=== PATIENT | female | born 1980 | race Caucasian/White ===

== ENCOUNTER 2017-04-21 09:15 | Inpatient (IN) | payer OTHER ==
[2017-04-21] MEDS ORDERED: OXYTOCIN 30 UNITS/LR 500 ML IV ×4 (10:00→15:30)
[2017-04-21] MEDS ORDERED: LIDOCAINE 1% (MPF) 30 ML INJ INJ (10:00)
[2017-04-21] MEDS ORDERED: MISOPROSTOL 200 MCG TAB PR ×3 (10:00→15:30)
[2017-04-21] MEDS ORDERED: CARBOPROST 250 MCG INJ IM ×3 (10:00→15:30)
[2017-04-21] MEDS: LACTATED RINGER'S 1,000 ML IV ×2 (10:27→12:58)
[2017-04-21 10:32] LABS: ADD MAN DIFF? NO
[2017-04-21 10:35] LABS: BASOPHILS % 0.4 % (0.0-2.0); EOSINOPHILS % 0.2 % (0.0-7.0); HEMATOCRIT 35.8 % (37.0-47.0); HEMOGLOBIN 12.2 g/dl (12.0-16.0); LYMPHOCYTES # 2.2 10^3/ul (0.8-2.9); LYMPHOCYTES % 19.8 % (15.0-51.0); MEAN CORPUSCULAR HEMOGLOBIN 31.8 pg (29.0-33.0); MEAN CORPUSCULAR HGB CONC 34.1 g/dl (32.0-37.0); MEAN CORPUSCULAR VOLUME 93.2 fl (82.0-101.0); MEAN PLATELET VOLUME 11.6 fl (7.4-10.4); MONOCYTE # 0.6 10^3/ul (0.3-0.9); MONOCYTES % 5.8 % (0.0-11.0); NEUTROPHILS % 73.3 % (39.0-77.0); PLATELET COUNT 151 10^3/UL (140-415); RED BLOOD COUNT 3.84 10^6/ul (4.20-5.40); RED CELL DISTRIBUTION WIDTH 12.8 % (11.5-14.5)
[2017-04-21 11:06] LABS: PARTIAL THROMBOPLASTIN TIME 28.1 Sec (25.0-35.0)
[2017-04-21 11:10] LABS: INR 0.93; PROTIME 12.5 Sec (11.9-14.9)
[2017-04-21] MEDS: BUTORPHANOL 2 MG INJ IV (11:24)
[2017-04-21 11:48] LABS: HEPATITIS B SURFACE ANTIGEN NEGATIVE (NEGATIVE)
[2017-04-21] MEDS: OXYTOCIN 30 UNITS/LR 500 ML IV ×2 (12:43→15:46)
[2017-04-21] MEDS ORDERED: EPHEDrine SULFATE 50 MG/5 ML SYG IV (13:00)
[2017-04-21] MEDS ORDERED: ONDANSETRON 4 MG INJ IV (13:00)
[2017-04-21] MEDS ORDERED: OXYTOCIN 30 UNITS in LACTATED RINGER'S 497 ML IV (13:00)
[2017-04-21] MEDS ORDERED: DIPHENHYDRAMINE 50 MG INJ IV (13:00)
[2017-04-21] MEDS ORDERED: NALOXONE (0.4 MG/ML) INJ IV (13:00)
[2017-04-21] MEDS ORDERED: FENTAnyl 2MCG/ML-ROPIV 0.2% 100 ML BAG EPI (13:00)
[2017-04-21] MEDS: METHYLERGONOVINE 0.2 MG INJ IM (15:18)
[2017-04-21] MEDS ORDERED: DEXTROSE 5%-LR 1,000 ML IV ×2 (15:23)
[2017-04-21] MEDS ORDERED: METHYLERGONOVINE 0.2 MG INJ IM ×2 (15:30)
[2017-04-21] MEDS: IBUPROFEN 600 MG TAB PO (18:47)
[2017-04-21] MEDS: IBUPROFEN 800 MG TAB PO (18:48)
[2017-04-21 22:05] LABS: RAPID PLASMA REAGIN NONREACTIVE (NR)
[2017-04-22] MEDS: IBUPROFEN 800 MG TAB PO ×3 (06:31→21:42)
[2017-04-22 08:46] LABS: ADD MAN DIFF? NO
[2017-04-22 09:05] LABS: BASOPHILS % 0.2 % (0.0-2.0); EOSINOPHILS # 0.1 10^3/ul (0.0-0.5); EOSINOPHILS % 0.7 % (0.0-7.0); HEMATOCRIT 30.6 % (37.0-47.0); HEMOGLOBIN 10.2 g/dl (12.0-16.0); LYMPHOCYTES # 2.1 10^3/ul (0.8-2.9); LYMPHOCYTES % 19.8 % (15.0-51.0); MEAN CORPUSCULAR HEMOGLOBIN 31.3 pg (29.0-33.0); MEAN CORPUSCULAR HGB CONC 33.3 g/dl (32.0-37.0); MEAN CORPUSCULAR VOLUME 93.9 fl (82.0-101.0); MEAN PLATELET VOLUME 11.9 fl (7.4-10.4); MONOCYTE # 0.6 10^3/ul (0.3-0.9); MONOCYTES % 5.8 % (0.0-11.0); NEUTROPHIL # 7.6 10^3/ul (1.6-7.5); PLATELET COUNT 136 10^3/UL (140-415); RED BLOOD COUNT 3.26 10^6/ul (4.20-5.40); RED CELL DISTRIBUTION WIDTH 13.1 % (11.5-14.5)
[2017-04-22 09:05] LABS: WHITE BLOOD COUNT 10.4 10^3/ul (4.8-10.8)
[2017-04-23] MEDS: IBUPROFEN 800 MG TAB PO ×2 (05:56→13:24)
== END 2017-04-23 17:55 | disposition home or self-care (01) | DRG 775 ==
LOC: OBT 09:15 → L-D 09:17 → OBT 09:31 → L-D 09:33 → PP1 17:56
PROVIDERS: Obstetrics & Gynecology
PROC: 10E0XZZ Delivery of Products of Conception, External Approach (ICD-10-PCS; principal; 2017-04-21)
PROC: 0HQ9XZZ Repair Perineum Skin, External Approach (ICD-10-PCS; 2017-04-21)
PROC: 4A1HXCZ Monitoring of Products of Conception, Cardiac Rate, External Approach (ICD-10-PCS; 2017-04-21)
DX: O48.0 Post-term pregnancy (principal); O70.0 First degree perineal laceration during delivery; Z37.0 Single live birth; Z3A.40 40 weeks gestation of pregnancy
CPT/HCPCS: 62319; 85025; 85610; 85730; 86592; 86850; 86900; 86901; 87340

== ENCOUNTER 2017-08-11 13:33 | Emergency (ER) | payer MEDICAID, OTHER | END 2017-08-11 16:31 | disposition home or self-care (01) | LOC: FTE 13:33 | DX: S99.911A Unspecified injury of right ankle, initial encounter (principal); W10.9XXA Fall (on) (from) unspecified stairs and steps, initial encounter; Y92.9 Unspecified place or not applicable | CPT/HCPCS: 73590; 73610-RT; 99283-25 ==

== ENCOUNTER 2017-08-23 07:06 | Day surgery (SDC) | payer MEDICAID ==
[~2017-08-23 07:06] MED LIST: CEFAZOLIN 1 GM INJ; DEXAMETHASONE 4 MG/ML 1 ML INJ; LIDOCAINE 2% (SDV) 5 ML INJ; METOCLOPRAMIDE 10 MG INJ
[2017-08-23 08:30] LABS: ADD MAN DIFF? NO
[2017-08-23 08:32] LABS: BASOPHILS % 0.9 % (0.0-2.0); EOSINOPHILS # 0.2 10^3/ul (0.0-0.5); EOSINOPHILS % 3.4 % (0.0-7.0); HEMATOCRIT 38.3 % (37.0-47.0); HEMOGLOBIN 12.9 g/dl (12.0-16.0); LYMPHOCYTES % 44.8 % (15.0-51.0); MEAN CORPUSCULAR HEMOGLOBIN 31.5 pg (29.0-33.0); MEAN CORPUSCULAR HGB CONC 33.7 g/dl (32.0-37.0); MEAN CORPUSCULAR VOLUME 93.4 fl (82.0-101.0); MEAN PLATELET VOLUME 10.9 fl (7.4-10.4); MONOCYTE # 0.4 10^3/ul (0.3-0.9); MONOCYTES % 8.3 % (0.0-11.0); NEUTROPHIL # 1.9 10^3/ul (1.6-7.5); NEUTROPHILS % 42.4 % (39.0-77.0); PLATELET COUNT 203 10^3/UL (140-415); RED CELL DISTRIBUTION WIDTH 12.6 % (11.5-14.5)
[2017-08-23 08:32] LABS: WHITE BLOOD COUNT 4.4 10^3/ul (4.8-10.8)
[2017-08-23 08:37] LABS: HOLD TRANSMISSIONS 1
[2017-08-23] MEDS ORDERED: HYDROmorphONE 1 MG/5 ML IV SYRINGE IV ×2 (09:00)
[2017-08-23] MEDS ORDERED: FENTAnyl 50 MCG/ML VIAL IV (09:00)
[2017-08-23] MEDS ORDERED: MIDAZOLAM 1 MG/ML 2 ML INJ (09:02)
[2017-08-23] MEDS ORDERED: PROPOFOL 20 ML (09:02)
[2017-08-23] MEDS ORDERED: FENTAnyl 50 MCG/ML VIAL (09:02)
[2017-08-23] MEDS ORDERED: ONDANSETRON 4 MG INJ (09:07)
[2017-08-23] MEDS: BUPIVACAINE 0.25% (MPF) 30 ML INJ (09:53)
[2017-08-23] MEDS: FENTAnyl 50 MCG/ML VIAL IV ×2 (10:57→11:04)
== END 2017-08-23 12:20 | disposition home or self-care (01) ==
LOC: SDS 07:06
DX: Z30.2 Encounter for sterilization (principal)
CPT/HCPCS: 58661; 84703; 85025; 88302

== ENCOUNTER 2017-09-26 15:22 | Emergency (ER) | payer MEDICAID | END 2017-09-26 19:56 | disposition home or self-care (01) | LOC: FTE 15:22 | DX: H66.93 Otitis media, unspecified, bilateral (principal) | CPT/HCPCS: 99283; Z7502 ==

== ENCOUNTER 2017-11-11 21:28 | Emergency (ER) | payer MEDICAID ==
[2017-11-11] MEDS: EPINEPHrine 1 MG INJ SC (22:59)
[2017-11-11] MEDS: ONDANSETRON 4 MG INJ IV (23:00)
[2017-11-11] MEDS: DIPHENHYDRAMINE 50 MG INJ IV (23:00)
[2017-11-11] MEDS: METHYLPREDNISOLONE 125 MG INJ IV (23:00)
[2017-11-11] MEDS: FAMOTIDINE 20 MG INJ IV (23:00)
== END 2017-11-12 02:31 | disposition home or self-care (01) ==
LOC: FTE 11-12 02:31
DX: T78.3XXA Angioneurotic edema, initial encounter (principal)
CPT/HCPCS: 96372; 96374; 96375; 99284-25

== ENCOUNTER 2018-06-13 07:38 | Emergency (ER) | payer MEDICAID ==
[2018-06-13] MEDS: KETOROLAC 30 MG INJ IM (09:47)
== END 2018-06-13 10:09 | disposition home or self-care (01) ==
LOC: FTE 07:38
DX: S16.1XXA Strain of muscle, fascia and tendon at neck level, initial encounter (principal); M62.838 Other muscle spasm; X58.XXXA Exposure to other specified factors, initial encounter; Y92.9 Unspecified place or not applicable
CPT/HCPCS: 81025; 96372; 99284-25